=== PATIENT | female | born 1950 | race Caucasian/White ===

== ENCOUNTER 2024-08-12 00:47 | Emergency (ER) | payer OTHER ==
[~2024-08-12] VITALS: Ht 165.1 cm; Wt 60.0 kg
[2024-08-12 00:50] VITALS: O2SAT 95
[2024-08-12] MEDS ORDERED: IBUP-2028 MT (03:00)
[2024-08-12] MEDS ORDERED: TOPUD PO (03:00)
[2024-08-12] MEDS ORDERED: LIDO700A15 TP (03:00)
[2024-08-12 04:00] VITALS: BP 144/79; PULSE 88; RESP 19; TEMP 36.83628; O2SAT 100
[2024-08-12] MEDS: IBUPROFEN 400MG TABLET PO ONE (04:00)
[2024-08-12] MEDS: ACETAMINOPHEN 325MG TABLET PO ONE (04:00)
== END 2024-08-12 04:15 | disposition home or self-care (01) ==
LOC: ER 00:47
DX: M25.531 Pain in right wrist (principal); M25.562 Pain in left knee; M54.50 Low back pain, unspecified; I10 Essential (primary) hypertension
CPT/HCPCS: 72100; 72170; 73110; 73562; 99284